=== PATIENT | female | born 1980 ===

== ENCOUNTER 2016-10-01 13:12 | Emergency (ER) | payer OTHER ==
[2016-10-01 13:13] VITALS: BMI 29.2
[2016-10-01 13:55] VITALS: BP 126/75; PULSE 75; TEMP 98; O2SAT 99
[2016-10-01] MEDS ORDERED: Tobramycin/Dexamethasone (Tobradex) Opth Sol (2.5 ml) OU STA (14:50)
--- NOTE | 2016-10-01 14:53 | ED PDOC ---
Arrival/HPI - General Chief Complaint: Cough, Cold, Congestion Time Seen by Provider: 10/01/16 14:28 Historian: Patient - History of Present Illness Narrative History of Present Illness (Text): 10/01/16 14:28 This 36 yo female presents to this ED c/o watery, itching, eyes redness x 1 week. Patient stated she has had similar symptoms in the past. Patient also c/ o nasal congestion. Patient denies eye discharge. Denies fever, sick contact, recent travel, christine, sob, cp, rash, sore throat, or dizziness. Time/Duration: 1 week Context: Home Past Medical History - Provider Review Nursing Documentation Reviewed: Yes - Infectious Disease Hx of Infectious Diseases: None - Tetanus Immunization Tetanus Immunization: Unknown - Past Medical History Past Medical History: No Previous - Cardiac Hx Cardiac Disorders: No - Pulmonary Hx Asthma: Yes - Neurological Hx Neurological Disorder: No - HEENT Hx HEENT Disorder: No - Renal Hx Renal Disorder: No - Endocrine/Metabolic Hx Endocrine Disorders: No - Hematological/Oncological Hx Anemia: Yes - Integumentary Hx Dermatological Disorder: No - Musculoskeletal/Rheumatological Hx Musculoskeletal Disorders: No Hx Falls: No - Gastrointestinal Hx Gastrointestinal Disorders: No - Genitourinary/Gynecological Hx Genitourinary Disorders: No - Psychiatric Hx Psychophysiologic Disorder: No Hx Anxiety: No Hx Bipolar Disorder: No Hx Depression: No Hx Emotional Abuse: No Hx Hallucinations: No Hx Panic Disorder: No Hx Post Traumatic Stress Disorder: No Hx Psychosis: No Hx Physical Abuse: No Hx Schizophrenia: No Hx Sexual Abuse: No Hx Substance Use: No - Past Surgical History Past Surgical History: No Previous - Surgical History Other/Comment: Cyst removed left wrist - Anesthesia Hx Anesthesia: No Hx Anesthesia Reactions: No Hx Malignant Hyperthermia: No - Suicidal Assessment Feels Threatened In Home Enviroment: No Family/Social History - Physician Review Nursing Documentation Reviewed: Yes Family/Social History: No Known Family HX Smoking Status: Former Smoker Hx Alcohol Use: No Hx Substance Use: No Hx Substance Use Treatment: No Allergies/Home Meds Allergies/Adverse Reactions: Allergies No Known Allergies Allergy (Verified 10/01/16 13:55) Review of Systems - Review of Systems Constitutional: Normal. absent: Fatigue, Weight Change Eyes: Other (Eye itchy and redness) ENT: Rhinorrhea. absent: Sore Throat Respiratory: Normal Cardiovascular: Normal. absent: Chest Pain, Palpitations Gastrointestinal: Normal. absent: Abdominal Pain, Nausea, Vomiting Genitourinary Female: Normal Musculoskeletal: Normal Skin: Normal. absent: Rash Neurological: Normal. absent: Headache, Dizziness, Focal Weakness, Gait Changes , Speech Changes, Facial Droop, Disequilibrium, Seizure Endocrine: Normal Hemo/Lymphatic: Normal Psychiatric: Normal Physical Exam Vital Signs Temp Pulse Resp BP Pulse Ox 10/01/16 15:35 16 99 10/01/16 15:19 75 16 99 10/01/16 13:50 98 F 75 20 126/75 99 Temperature: Afebrile Blood Pressure: Normal Pulse: Regular Respiratory Rate: Normal Appearance: Positive for: Well-Appearing, Non-Toxic, Comfortable Pain Distress: None Mental Status: Positive for: Alert and Oriented X 3 - Systems Exam Head: Present: Atraumatic, Normocephalic. No: Tenderness Pupils: Present: PERRL Extroacular Muscles: Present: EOMI. No: Entrapment Conjunctiva: Present: Injected (mild b/l) Ears: Present: Normal, NORMAL TM, Normal Canal. No: Erythema, TM Bulging Mouth: Present: Moist Mucous Membranes, Normal Lips, Normal Tounge. No: Drooling Pharnyx: Present: Normal. No: ERYTHEMA, EXUDATE, TONSILS ENLARGED Nose (External): Present: Atraumatic Nose (Internal): Present: Rhinorrhea. No: Engorged, Edematous, Purulent Mucous Neck: Present: Normal Range of Motion Respiratory/Chest: Present: Clear to Auscultation, Good Air Exchange. No: Respiratory Distress, Accessory Muscle Use Cardiovascular: Present: Regular Rate and Rhythm, Normal S1, S2. No: Murmurs Abdomen: Present: Normal Bowel Sounds. No: Tenderness, Distention, Peritoneal Signs Back: Present: Normal Inspection Upper Extremity: Present: Normal Inspection. No: Cyanosis, Edema Lower Extremity: Present: Normal Inspection. No: Edema Neurological: Present: GCS=15, CN II-XII Intact, Speech Normal Skin: Present: Warm, Dry, Normal Color. No: Rashes Psychiatric: Present: Alert, Oriented x 3, Normal Insight, Normal Concentration Medical Decision Making ED Course and Treatment: 10/01/16 14:51 Patient came c/o b/l eye itching. She stated oral antihistamine is not helping. Patient is requesting Tobradex ophthalmic for symptoms which it has worked in the past. Patient understands risk of using steroid medication, which it could cause not only by including cataracts. She still wants this medication. Re-evaluation Time: 14:53 Reassessment Condition: Re-examined, Improved - Medication Orders Current Medication Orders: Discontinued Medications Tobramycin/Dexamethasone (Tobradex Opht Susp) 1 ml OU STAT STA Stop: 10/01/16 14:51 Last Admin: 10/01/16 15:30 Dose: 1 ml Disposition/Present on Arrival - Present on Arrival Any Indicators Present on Arrival: No History of DVT/PE: No History of Uncontrolled Diabetes: No Urinary Catheter: No History of Decub. Ulcer: No History Surgical Site Infection Following: None - Disposition Have Diagnosis and Disposition been Completed?: Yes Diagnosis: Conjunctivitis, Nasal congestion Disposition: HOME/ ROUTINE Disposition Time: 15:16 Patient Plan: Discharge Condition: GOOD Discharge Instructions (ExitCare): Conjunctivitis (ED) Additional Instructions: Call private doctor for follow up visit ion 1-2 days. Take medication as instructed. Return to emergency if symptoms worsen. Eye drop to be use 3 times a day for max. 7 days Prescriptions: Promethazine DM [Dextromethorphan/Promethazine 15 MG/5 Ml-6.25] 5 ml PO Q4H PRN #180 ml PRN Reason: Cough Referrals: PCP,NO [Primary Care Provider] - Follow up with primary [facility] [Outside] - Follow up with primary [facility] [place] [Outside] - Follow up with primary Forms: WORK NOTE
[2016-10-01 15:19] VITALS: RESP 16
== END 2016-10-01 15:35 | disposition home or self-care (01) ==
LOC: ED 13:12
DX: H10.9 Unspecified conjunctivitis (principal); R09.81 Nasal congestion

== ENCOUNTER 2016-12-26 01:16 | Emergency (ER) | payer OTHER ==
[2016-12-26 01:17] VITALS: BMI 29.2
== END 2016-12-26 03:05 | disposition left against medical advice (07) ==
LOC: ED 01:16
DX: Z02.89 Encounter for other administrative examinations (principal); R51 Headache

== ENCOUNTER 2017-03-07 00:24 | Emergency (ER) | payer SELFPAY ==
[2017-03-07 00:24] VITALS: BMI 29.2
[2017-03-07] MEDS ORDERED: Albuterol-Ipratrop 3 mg / 0.5 (3 ml) UD ONE (00:42)
[2017-03-07 00:47] VITALS: BP 103/61; PULSE 100; RESP 18; TEMP 98.5; O2SAT 100
[2017-03-07] MEDS ORDERED: Albuterol-Ipratrop 3 mg / 0.5 (3 ml) UD IH STA (00:48)
--- NOTE | 2017-03-07 00:57 | ED PDOC ---
Arrival/HPI - General Time Seen by Provider: 03/07/17 00:41 Historian: Patient - History of Present Illness Narrative History of Present Illness (Text): 03/07/17 00:56 A 36 year old female, whose past medical history includes asthma, presents to the emergency department complaining of shortness of breath. Patient reports she is on Albuterol at home. Reports pain when taking deep breaths. Notes a nonproductive cough but denies any fever, chills, headache or any other complaints at this time. Symptom Onset: Sudden Symptom Course: Unchanged Activities at Onset: Rest Context: Home Past Medical History - Provider Review Nursing Documentation Reviewed: Yes - Infectious Disease Hx of Infectious Diseases: None - Tetanus Immunization Tetanus Immunization: Unknown - Past Medical History Past Medical History: No Previous - Cardiac Hx Cardiac Disorders: No - Pulmonary Hx Asthma: Yes - Neurological Hx Neurological Disorder: No - HEENT Hx HEENT Disorder: No - Renal Hx Renal Disorder: No - Endocrine/Metabolic Hx Endocrine Disorders: No - Hematological/Oncological Hx Anemia: Yes - Integumentary Hx Dermatological Disorder: No - Musculoskeletal/Rheumatological Hx Musculoskeletal Disorders: No Hx Falls: No - Gastrointestinal Hx Gastrointestinal Disorders: No - Genitourinary/Gynecological Hx Genitourinary Disorders: No - Psychiatric Hx Psychophysiologic Disorder: No Hx Anxiety: No Hx Bipolar Disorder: No Hx Depression: No Hx Emotional Abuse: No Hx Hallucinations: No Hx Panic Disorder: No Hx Post Traumatic Stress Disorder: No Hx Psychosis: No Hx Physical Abuse: No Hx Schizophrenia: No Hx Sexual Abuse: No Hx Substance Use: No - Past Surgical History Past Surgical History: No Previous - Surgical History Other/Comment: Cyst removed left wrist - Anesthesia Hx Anesthesia: No Hx Anesthesia Reactions: No Hx Malignant Hyperthermia: No - Suicidal Assessment Feels Threatened In Home Enviroment: No Family/Social History - Physician Review Nursing Documentation Reviewed: Yes Family/Social History: No Known Family HX Smoking Status: Light Smoker < 10 Cigarettes Daily Hx Alcohol Use: No Hx Substance Use: No Hx Substance Use Treatment: No Allergies/Home Meds Allergies/Adverse Reactions: Allergies No Known Allergies Allergy (Verified 03/07/17 00:43) Review of Systems - Physician Review All systems were reviewed & negative as marked: Yes - Review of Systems Constitutional: absent: Fevers, Other (chills) Respiratory: SOB, Cough Neurological: absent: Headache Physical Exam Vital Signs Reviewed: Yes Vital Signs Temp Pulse Resp BP Pulse Ox 03/07/17 00:43 98.5 F 100 H 18 103/61 100 Temperature: Afebrile Blood Pressure: Normal Pulse: Regular Respiratory Rate: Normal Appearance: Positive for: Well-Appearing, Non-Toxic, Comfortable Pain Distress: None Mental Status: Positive for: Alert and Oriented X 3 - Systems Exam Head: Present: Atraumatic, Normocephalic Pupils: Present: PERRL Extroacular Muscles: Present: EOMI Conjunctiva: Present: Normal Mouth: Present: Moist Mucous Membranes Neck: Present: Normal Range of Motion Respiratory/Chest: Present: Other (expiratory wheezing). No: Respiratory Distress, Accessory Muscle Use Cardiovascular: Present: Regular Rate and Rhythm, Normal S1, S2. No: Murmurs Abdomen: Present: Normal Bowel Sounds. No: Tenderness, Distention, Peritoneal Signs Back: Present: Normal Inspection Upper Extremity: Present: Normal Inspection. No: Cyanosis, Edema Lower Extremity: Present: Normal Inspection. No: Edema Neurological: Present: GCS=15, CN II-XII Intact, Speech Normal Skin: Present: Warm, Dry, Normal Color. No: Rashes Psychiatric: Present: Alert, Oriented x 3, Normal Insight, Normal Concentration Medical Decision Making ED Course and Treatment: 03/07/17 00:55 Impression: A 36 year old female with shortness of breath. Plan: -- chest xray -- Duoneb -- Reassess and disposition Prior Visits: Notes and results from previous visits were reviewed. Patient was seen in the emergency department on 10/01/16 for evaluation of watery, itching and eyes redness. Progress Notes: 03/07/17 02:47 Chest xray: No acute process, interpreted by me. 03/07/17 02:48 On re-evaluation, patient feels better and is in no acute distress. I have discussed the results and plan with the patient, who expresses understanding. Patient in agreement with plan to be discharged home. Patient is stable for discharge. Patient was instructed to follow up with physician or return if symptoms worsen or new concerning symptoms arise. - RAD Interpretation Radiology Orders: 03/07/17 00:47 CHEST PORTABLE [RAD] Stat - Medication Orders Current Medication Orders: Discontinued Medications Albuterol/Ipratropium (Duoneb 3 Mg/0.5 Mg (3 Ml) Ud) 3 ml IH ONCE STA Stop: 10/04/17 00:49 Last Admin: 03/07/17 01:42 Dose: 3 ml - Scribe Statement The provider has reviewed the documentation as recorded by the Onel Waters Provider Giselaibe Attestation: All medical record entries made by the Giselaibnader were at my direction and personally dictated by me. I have reviewed the chart and agree that the record accurately reflects my personal performance of the history, physical exam, medical decision making, and the department course for this patient. I have also personally directed, reviewed, and agree with the discharge instructions and disposition. Disposition/Present on Arrival - Present on Arrival Any Indicators Present on Arrival: No History of DVT/PE: No History of Uncontrolled Diabetes: No Urinary Catheter: No History of Decub. Ulcer: No History Surgical Site Infection Following: None - Disposition Have Diagnosis and Disposition been Completed?: Yes Diagnosis: Asthma, Bronchitis Disposition: HOME/ ROUTINE Disposition Time: 02:50 Patient Plan: Discharge Condition: GOOD Discharge Instructions (ExitCare): Asthma (ED), Acute Bronchitis (ED) Additional Instructions: No smoking/medication as prescribed/follow up with your doctor this week Prescriptions: Ibuprofen [Motrin] 600 mg PO Q6 PRN #16 tab PRN Reason: Pain, Moderate (4-7) predniSONE [Prednisone] 40 mg PO DAILY #10 tab Albuterol HFA [Ventolin HFA 90 mcg/actuation (8 g)] 2 puff IH [id number] PRN #1 puff PRN Reason: Wheezing Azithromycin [Zithromax] 250 mg PO DAILY #4 tab
--- NOTE | 2017-03-07 13:02 | RAD ---
HISTORY: cough COMPARISON: All 03/15/2016 FINDINGS: LUNGS: No consolidation. The right infrahilar bronchovascular marking are mildly prominent -right infrahilar peribronchial thickening bronchitis can simulate this. Findings are not appreciated on prior exam PLEURA: No significant pleural effusion identified, no pneumothorax apparent. CARDIOVASCULAR: Normal heart size OSSEOUS STRUCTURES: No significant abnormalities. VISUALIZED UPPER ABDOMEN: Normal. OTHER FINDINGS: None. IMPRESSION: No consolidative infiltrate. Possible right infrahilar bronchitis
== END 2017-03-07 03:46 | disposition home or self-care (01) ==
LOC: ED 00:24
DX: J45.909 Unspecified asthma, uncomplicated (principal)

== ENCOUNTER 2017-06-02 16:14 | Emergency (ER) | payer OTHER ==
[2017-06-02 16:14] VITALS: BMI 29.2
[2017-06-02 16:22] VITALS: TEMP 97.7
[2017-06-02] MEDS ORDERED: Albuterol-Ipratrop 3 mg / 0.5 (3 ml) UD IH STA (16:54)
[2017-06-02 17:08] LABS: URINE BILIRUBIN NEGATIVE (NEGATIVE); URINE BLOOD NEGATIVE (NEGATIVE); URINE GLUCOSE (UA) NEGATIVE (NEGATIVE); URINE LEUKOCYTE ESTERASE NEGATIVE Leu/uL (NEGATIVE); URINE NITRATE NEGATIVE (NEGATIVE); URINE PROTEIN NEGATIVE mg/dL (<30 mg/dL); URINE UROBILINOGEN 0.2 E.U./dL (<1 E.U./dL)
[2017-06-02 17:10] LABS: URINE APPEARANCE CLEAR (CLEAR); URINE COLOR YELLOW (YELLOW)
--- NOTE | 2017-06-02 17:48 | ED PDOC ---
Arrival/HPI - General Chief Complaint: Cough, Cold, Congestion Time Seen by Provider: 06/02/17 16:33 Historian: Patient - History of Present Illness Narrative History of Present Illness (Text): 06/02/17 17:44 36 yo F who is 3.5 months , w/ PMH of asthma reports 1 week h/o cough, congestion and SOB due to asthma, has been taking her inhaler and nebulizer with mild relief. Patient also reports of mild low back pain when she coughs. Otherwise: (-) fever, (-) sore throat, (-) N/V/D, (-) abdominal pain, (-) vaginal bleeding, (-) urinary symptoms, (-) recent travel, (-) sick contacts. Patient states that she is receiving care and has had a prior US to confirm her . Past Medical History - Provider Review Nursing Documentation Reviewed: Yes - Infectious Disease Hx of Infectious Diseases: None - Tetanus Immunization Tetanus Immunization: Unknown - Past Medical History Past Medical History: No Previous - Cardiac Hx Cardiac Disorders: No - Pulmonary Hx Respiratory Disorders: Yes Hx Asthma: Yes - Neurological Hx Neurological Disorder: No - HEENT Hx HEENT Disorder: No - Renal Hx Renal Disorder: No - Endocrine/Metabolic Hx Endocrine Disorders: No - Hematological/Oncological Hx Anemia: Yes - Integumentary Hx Dermatological Disorder: No - Musculoskeletal/Rheumatological Hx Musculoskeletal Disorders: No Hx Falls: No - Gastrointestinal Hx Gastrointestinal Disorders: No - Genitourinary/Gynecological Hx Genitourinary Disorders: No - Psychiatric Hx Psychophysiologic Disorder: No Hx Anxiety: No Hx Bipolar Disorder: No Hx Depression: No Hx Emotional Abuse: No Hx Hallucinations: No Hx Panic Disorder: No Hx Post Traumatic Stress Disorder: No Hx Psychosis: No Hx Physical Abuse: No Hx Schizophrenia: No Hx Sexual Abuse: No Hx Substance Use: No - Past Surgical History Past Surgical History: No Previous - Surgical History Other/Comment: Cyst removed left wrist - Anesthesia Hx Anesthesia: Yes Hx Anesthesia Reactions: No Hx Malignant Hyperthermia: No - Suicidal Assessment Feels Threatened In Home Enviroment: No Family/Social History - Physician Review Nursing Documentation Reviewed: Yes Family/Social History: Unknown Family HX Smoking Status: Never Smoked Hx Alcohol Use: No Hx Substance Use: No Hx Substance Use Treatment: No Allergies/Home Meds Allergies/Adverse Reactions: Allergies No Known Allergies Allergy (Verified 06/02/17 16:17) Home Medications: Home Meds Medication Instructions Recorded Confirmed DiphenhydrAMINE [Benadryl] 25 mg PO PRN PRN 06/02/17 06/02/17 Review of Systems - Review of Systems Constitutional: absent: Fatigue, Weight Change, Fevers ENT: Rhinorrhea, Sinus Congestion. absent: Sore Throat Respiratory: SOB, Cough Cardiovascular: absent: Chest Pain, Palpitations, Edema Gastrointestinal: absent: Abdominal Pain, Diarrhea, Vomiting Genitourinary Female: absent: Dysuria, Frequency, Hematuria Musculoskeletal: Back Pain. absent: Arthralgias, Neck Pain Skin: absent: Rash, Pruritis, Skin Lesions Physical Exam - Physical Exam Narrative Physical Exam (Text): 06/02/17 17:48 GENERAL APPEARANCE: Patient is awake, alert, oriented x 3, in no acute distress. Speaking in full sentences, no respiratory distress. SKIN: Warm, dry; (-) cyanosis, (-) rash. (-) Decubitus Ulcer EYES: (-) conjunctival pallor, (-) scleral icterus, (-) conjunctival hemorrhage. ENMT: Mucous membranes moist. TMs: (-) erythema. Airway patent: (-) stridor. Pharynx: (-) erythema, (-) exudate. NECK: (-) tenderness, (-) stiffness, (-) meningismus, (-) lymphadenopathy. CHEST AND RESPIRATORY: (-) accessory muscle use. Lungs: (-) rales, (-) rhonchi, (-) wheezes, (-) rub; breath sounds equal bilaterally. HEART AND CARDIOVASCULAR: (-) irregularity; (-) murmur, (-) gallop, (-) rub. BACK : (-) tenderness. ABDOMEN AND GI: Soft; (-) tenderness, (-) guarding; (-) organomegaly; (-) mass ; (-) CVA tenderness. EXTREMITIES: (-) deformity; (-) cellulitis, (-) lymphangitis; (-) subungual hemorrhage; (-) edema. NEURO AND PSYCH: Mental status as above; (-) focal findings. Vital Signs Temp Pulse Resp BP Pulse Ox 06/02/17 16:20 97.7 F 86 18 94/66 L 95 Medical Decision Making ED Course and Treatment: 06/02/17 17:49 36 yo F who is 3.5 months , w/ PMH of asthma reports 1 week h/o cough, congestion and SOB due to asthma, has been taking her inhaler and nebulizer with mild relief. Plan : - UA - Urine cx - Duoneb x1 - Prednisone 60 mg PO UA (-), urine cx is pending. On re-evaluation, patient reports she fels much improved, denies any SOB, CP, abdominal pain or vaginal bleeding. On exam, patient is speaking in full sentences, no respiratory distress, lungs are clear to auscultation, BS are equal b/l. Dx of viral illness, and asthma d/w the patient. Instructed to follow up with primary care physician in 1-2 days without fail. Advised to take medication as prescribed. Return to the emergency room at any time for any new or worsening symptoms. Patient states she fully agrees with and understands discharge instructions. States that she agrees with the plan and disposition. Verbalized and repeated discharge instructions and plan. I have given the patient opportunity to ask any additional questions. - Lab Interpretations Lab Results: Lab Results 06/02/17 16:30: Urine Color Yellow, Urine Appearance Clear, Urine pH 6.0, Ur Specific [place] 1.020, Urine Protein Negative, Urine Glucose (UA) Negative, Urine Ketones Negative, Urine Blood Negative, Urine Nitrate Negative, Urine Bilirubin Negative, Urine Urobilinogen 0.2, Ur Leukocyte Esterase Negative - Medication Orders Current Medication Orders: Discontinued Medications Albuterol/Ipratropium (Duoneb 3 Mg/0.5 Mg (3 Ml) Ud) 3 ml IH STAT STA Stop: 06/02/17 16:55 Last Admin: 06/02/17 17:05 Dose: 3 ml Prednisone (Prednisone Tab) 60 mg PO STAT STA Stop: 06/02/17 16:55 Last Admin: 06/02/17 17:05 Dose: 60 mg - PA / CLINICAL ASSISTANT PROFESSOR / Resident Statement MD/DO has reviewed & agrees with the documentation as recorded. Disposition/Present on Arrival - Present on Arrival Any Indicators Present on Arrival: No History of DVT/PE: No History of Uncontrolled Diabetes: No Urinary Catheter: No History of Decub. Ulcer: No History Surgical Site Infection Following: None - Disposition Have Diagnosis and Disposition been Completed?: Yes Diagnosis: Cough, Viral illness Disposition: HOME/ ROUTINE Disposition Time: 17:50 Patient Plan: Discharge Patient Problems: Current Active Problems Problem Status Onset Cough Acute Viral illness Acute Condition: STABLE Discharge Instructions (ExitCare): Asthma (DC), Viral Syndrome (ED) Print Language: SINHAL[place] Additional Instructions: Thank you for letting us take care of you today. You were treated for cough, viral illness, asthma. The emergency medical care you received today was directed at your acute symptoms. If you were prescribed any medication, please fill it and take as directed. It may take several days for your symptoms to resolve. Return to the Emergency Department if your symptoms worsen, do not improve, or if you have any other problems. Please contact your doctor in 2 days for re-evaluation and follow up. Bring any paperwork you were given at discharge with you along with any medications you are taking to your follow up visit. Our treatment cannot replace ongoing medical care by a primary care provider (PCP) outside of the emergency department. Thank you for allowing the [facility] team to be part of your care today. Prescriptions: predniSONE [predniSONE Tab] 40 mg PO DAILY #8 tab Forms: [place] (Green[place]ic), WORK NOTE
[2017-06-02 18:40] VITALS: BP 112/87; PULSE 82; RESP 16; O2SAT 100
== END 2017-06-02 18:37 | disposition home or self-care (01) ==
LOC: ED 16:14
DX: B34.9 Viral infection, unspecified (principal); R05 Cough; J45.909 Unspecified asthma, uncomplicated

== ENCOUNTER 2017-09-29 18:44 | Emergency (ER) | payer OTHER ==
[2017-09-29 18:45] VITALS: BMI 29.2
--- NOTE | 2017-09-29 19:37 | ED PDOC ---
Arrival/HPI - General Chief Complaint: Female Genitourinary Time Seen by Provider: 09/29/17 19:34 Historian: Patient - History of Present Illness Narrative History of Present Illness (Text): 09/29/17 19:34 pt p/w + pelvic region cramping/with pain radiating from her back to her groin b /l x 1 week; pt states back pain is worse towards her right side/glutteal region ; pt states walking excessively/lifting/moving causes more pain; pt states at most pain is 8-9/10; pt states [place] pelvic cramping also is more noticeable; pt states no fever/chills/sweats, no cp/sob/palpitations, no upper abd pain, no n/v , no numbness/tingling, no urinary/bowel changes, no incontinence, no vaginal bleeding, no urinary frequency, pt denied fall/trauma/sick contact, no travel accommodation inspector states her prior pregnancies she did not have this problem pt also states she has not had an outpt [facility] pt has had care pt is here for further eval pt's without other complaints. pt is currently 8 months preg [employer] PROF[employer]AL: DR GALVAN LMP: feb 2017 due date: 11/28/2017 PMHx: asthma Time/Duration: 1 week Symptom Onset: Gradual Symptom Course: Unchanged Quality: Tightness, Stabbing, Cramping Severity Level: 8 Activities at Onset: Other (worse pain with movement) Context: Walking, Exertion, Home Past Medical History - Provider Review Nursing Documentation Reviewed: Yes - Travel History Have you recently traveled outside [place] w/in the past 3 mons?: No - Past History Past History: No Previous - Infectious Disease Hx of Infectious Diseases: None - Tetanus Immunization Tetanus Immunization: Unknown - Reproductive Menopause: No Currently : Yes - Past Medical History Past Medical History: No Previous - Cardiac Hx Cardiac Disorders: No - Pulmonary Hx Respiratory Disorders: Yes Hx Asthma: Yes - Neurological Hx Neurological Disorder: No - HEENT Hx HEENT Disorder: No - Renal Hx Renal Disorder: No - Endocrine/Metabolic Hx Endocrine Disorders: No - Hematological/Oncological Hx Anemia: Yes - Integumentary Hx Dermatological Disorder: No - Musculoskeletal/Rheumatological Hx Musculoskeletal Disorders: No Hx Falls: No - Gastrointestinal Hx Gastrointestinal Disorders: No - Genitourinary/Gynecological Hx Genitourinary Disorders: No - Psychiatric Hx Psychophysiologic Disorder: No Hx Anxiety: No Hx Bipolar Disorder: No Hx Depression: No Hx Emotional Abuse: No Hx Hallucinations: No Hx Panic Disorder: No Hx Post Traumatic Stress Disorder: No Hx Psychosis: No Hx Physical Abuse: No Hx Schizophrenia: No Hx Sexual Abuse: No Hx Substance Use: No - Past Surgical History Past Surgical History: No Previous - Surgical History Other/Comment: Cyst removed left wrist - Anesthesia Hx Anesthesia: Yes Hx Anesthesia Reactions: No Hx Malignant Hyperthermia: No - Suicidal Assessment Feels Threatened In Home Enviroment: No Family/Social History - Physician Review Nursing Documentation Reviewed: Yes Family/Social History: No Known Family HX Smoking Status: Never Smoked Hx Alcohol Use: No Hx Substance Use: No Hx Substance Use Treatment: No Allergies/Home Meds Allergies/Adverse Reactions: Allergies No Known Allergies Allergy (Verified 09/29/17 19:03) Review of Systems - Review of Systems Constitutional: Normal Eyes: Normal ENT: Normal Respiratory: Normal Cardiovascular: Normal Gastrointestinal: Abdominal Pain, Other (pelvic cramps/pain). absent: Nausea, Vomiting Genitourinary Female: Normal. absent: Dysuria, Frequency, Hematuria, Vaginal Bleeding, Vaginal Discharge Musculoskeletal: Back Pain. absent: Arthralgias, Neck Pain Skin: Normal Neurological: Normal Endocrine: Normal Hemo/Lymphatic: Normal Psychiatric: Normal Physical Exam Vital Signs Reviewed: Yes Vital Signs Temp Pulse Resp BP Pulse Ox 09/29/17 19:30 98.2 F 89 17 109/68 98 Temperature: Afebrile Blood Pressure: Normal Pulse: Regular Respiratory Rate: Normal Appearance: Positive for: Well-Appearing, Non-Toxic, Uncomfortable, Other (alert /awake, GCS = 15, oriented x 3, sitting on exam bed, mildly uncomfortable, NAD, cooperative, follows command with ease) Pain Distress: None Mental Status: Positive for: Alert and Oriented X 3 - Systems Exam Head: Present: Atraumatic, Normocephalic Pupils: Present: PERRL, Other (no nystagmus, no photophobia, sclera anicteric) Extroacular Muscles: Present: EOMI Conjunctiva: Present: Normal Ears: Present: Normal Mouth: Present: Moist Mucous Membranes, Normal Teeth, Other (uvula/tongue are midline, no exudate/lesions). No: Drooling Pharnyx: Present: Normal Nose (External): Present: Atraumatic Nose (Internal): Present: Normal Inspection Neck: Present: Normal Range of Motion, Trachea Midline, Other (intact ROM, no midline tenderness, no step off). No: Meningeal Signs, MIDLINE TENDERNESS, Paraspinal Tenderness Respiratory/Chest: Present: Clear to Auscultation, Good Air Exchange, Other ( CTA b/l, no w/r/r). No: Respiratory Distress, Accessory Muscle Use Cardiovascular: Present: Regular Rate and Rhythm, Normal S1, S2. No: Murmurs Abdomen: Present: Normal Bowel Sounds, Other (gravid abd, appropriate gestation , no focal abd tenderness, no mcmillan's sign, no mcburney's point tenderness, no masses/rebound/guarding/rigidity) Back: Present: Normal Inspection. No: CVA Tenderness, Midline Tenderness, Paraspinal Tenderness Upper Extremity: Present: Normal Inspection, Normal ROM, NORMAL PULSES Lower Extremity: Present: Normal Inspection, NORMAL PULSES, Normal ROM, Neurovascularly Intact, Other (+ pt is ambulatory without any difficulties, neurovasc intact b/l, strength 5/5 grossly intact b/l) Neurological: Present: GCS=15, CN II-XII Intact, Speech Normal Skin: Present: Warm, Normal Color, Other (cap refill < 1sec, no ulcerations, no petechiae, no rashes) Psychiatric: Present: Alert, Oriented x 3 Medical Decision Making ED Course and Treatment: 09/29/171933 Impression: pelvic cramps, lower back pain x 1 week i have consider all the differential diagnosis regarding pt's chief medical complaints/clinical findings, including but are not limited to: pelvic cramps, lower back pain x 1 week A/P: pelvic cramps, lower back pain x 1 week, 8 months preg - ua - us - likely transfer to L&D outside of [facility] - supportive care - observe/reevaluation 1944 pt is made aware that [facility] does not have an L&D specialty coverage, pt is made aware that she will be subsequently transferred to either [facility], or [facility], or the hospital where upon she will likely be delivering; pt states after much thought that she wants to leave AMA and she will go there on her own tonight with her significant other at around 8pm pt is aware that by leaving against medical advice, potential life-threatening illness remains and pt can lose limb/her baby, and/or worse case, she can Pt is directed to see her doctor immediately pt expressed understanding pt is made aware that if she changes her mind, she is encouraged to return to ED immediately for further care/management Re-evaluation Time: 19:45 Reassessment Condition: Unchanged Disposition/Present on Arrival - Present on Arrival Any Indicators Present on Arrival: No History of DVT/PE: No History of Uncontrolled Diabetes: No Urinary Catheter: No History of Decub. Ulcer: No History Surgical Site Infection Following: None - Disposition Have Diagnosis and Disposition been Completed?: Yes Diagnosis: Pelvic cramping, Third trimester , Back pain Disposition: AGAINST MEDICAL ADVICE Disposition Time: 19:35 Condition: STABLE Discharge Instructions (ExitCare): Care, Acute Pelvic Pain, - The Eighth Month, Round Ligament Pain Print Language: ALBANIAN Additional Instructions: you are leaving against medical advice potential life-threatening illness remains and pt can lose limb/or worse case, lose your baby, or you can possibly you are to see your doctor as soon as possible if you change your mind, you are encouraged to return to ED immediately for further care/management Referrals: Lorenzo Galvan MD [Primary Care Provider] - Follow up with primary Forms: [facility] (Belgian)
[2017-09-29 19:56] VITALS: BP 109/68; PULSE 89; RESP 17; TEMP 98.2; O2SAT 98
== END 2017-09-29 19:53 | disposition left against medical advice (07) ==
LOC: ED 18:44
DX: O26.893 Other specified pregnancy related conditions, third trimester (principal); Z3A.32 32 weeks gestation of pregnancy; R10.2 Pelvic and perineal pain; M54.5 Low back pain

== ENCOUNTER 2018-06-07 21:38 | Emergency (ER) | payer OTHER ==
[2018-06-07 21:38] VITALS: BMI 29.2
[2018-06-07] MEDS ORDERED: Albuterol-Ipratrop 3 mg / 0.5 (3 ml) UD IH STA ×4 (22:03→23:41)
--- NOTE | 2018-06-07 22:03 | ED PDOC ---
Arrival/HPI - General Chief Complaint: Shortness Of Breath Time Seen by Provider: 06/07/18 21:43 Historian: Patient - History of Present Illness Narrative History of Present Illness (Text): 06/07/18 22:03 37 year old female, whose past medical history includes asthma, who presents to the emergency department complaining of shortness of breath for the past two days. Patient reports taking albuterol without any significant improvement. Patient reports associated nonproductive cough and wheezing. Patient reports symptoms are consistent with usual asthma symptoms. Patient denies any urinary symptoms, fevers, chills, headache, dizziness, chest pain, abdominal pain, nausea, vomiting, diarrhea, back pain, neck pain, or any other complaints. Time/Duration: < week (2 days ) Symptom Onset: Gradual Symptom Course: Unchanged Activities at Onset: Light Context: Home Past Medical History - Provider Review Nursing Documentation Reviewed: Yes - Past History Past History: No Previous - Infectious Disease Hx of Infectious Diseases: None - Tetanus Immunization Tetanus Immunization: Unknown - Past Medical History Past Medical History: No Previous - Cardiac Hx Cardiac Disorders: No - Pulmonary Hx Respiratory Disorders: Yes Hx Asthma: Yes - Neurological Hx Neurological Disorder: No - HEENT Hx HEENT Disorder: No - Renal Hx Renal Disorder: No - Endocrine/Metabolic Hx Endocrine Disorders: No - Hematological/Oncological Hx Blood Disorders: Yes Hx Anemia: Yes - Integumentary Hx Dermatological Disorder: No - Musculoskeletal/Rheumatological Hx Musculoskeletal Disorders: No Hx Falls: No - Gastrointestinal Hx Gastrointestinal Disorders: No - Genitourinary/Gynecological Hx Genitourinary Disorders: No - Psychiatric Hx Psychophysiologic Disorder: No Hx Anxiety: No Hx Bipolar Disorder: No Hx Depression: No Hx Emotional Abuse: No Hx Hallucinations: No Hx Panic Disorder: No Hx Post Traumatic Stress Disorder: No Hx Psychosis: No Hx Physical Abuse: No Hx Schizophrenia: No Hx Sexual Abuse: No Hx Substance Use: No - Past Surgical History Past Surgical History: No Previous - Surgical History Hx Section: Yes (x1) Other/Comment: Cyst removed left wrist - Anesthesia Hx Anesthesia: Yes Hx Anesthesia Reactions: No Hx Malignant Hyperthermia: No - Suicidal Assessment Feels Threatened In Home Enviroment: No Family/Social History - Physician Review Nursing Documentation Reviewed: Yes Family/Social History: Unknown Family HX Smoking Status: Never Smoked Hx Alcohol Use: No Hx Substance Use: No Hx Substance Use Treatment: No Allergies/Home Meds Allergies/Adverse Reactions: Allergies No Known Allergies Allergy (Verified 06/07/18 21:40) Review of Systems - Physician Review All systems were reviewed & negative as marked: Yes - Review of Systems Constitutional: absent: Fevers Respiratory: SOB, Cough, Wheezing Cardiovascular: absent: Chest Pain Gastrointestinal: absent: Abdominal Pain, Diarrhea, Nausea Genitourinary Female: absent: Frequency, Hematuria, Urine Output Changes Musculoskeletal: absent: Back Pain Skin: absent: Rash Neurological: absent: Headache, Dizziness Physical Exam Vital Signs Reviewed: Yes Vital Signs Temp Pulse Resp BP Pulse Ox 06/07/18 21:40 98.8 F 110 H 19 104/63 96 Temperature: Afebrile Blood Pressure: Normal Pulse: Tachycardic Respiratory Rate: Normal Appearance: Positive for: Well-Appearing, Non-Toxic, Comfortable Pain Distress: None Mental Status: Positive for: Alert and Oriented X 3 - Systems Exam Head: Present: Atraumatic, Normocephalic Pupils: Present: PERRL Extroacular Muscles: Present: EOMI Conjunctiva: Present: Normal Mouth: Present: Moist Mucous Membranes Neck: Present: Normal Range of Motion Respiratory/Chest: Present: Wheezes (wheezing bilaterally ). No: Respiratory Distress, Accessory Muscle Use Cardiovascular: Present: Regular Rate and Rhythm, Normal S1, S2. No: Murmurs Abdomen: No: Tenderness, Distention, Peritoneal Signs Back: Present: Normal Inspection Upper Extremity: Present: Normal Inspection. No: Cyanosis, Edema Lower Extremity: Present: Normal Inspection. No: Edema Neurological: Present: GCS=15, CN II-XII Intact, Speech Normal Skin: Present: Warm, Dry, Normal Color. No: Rashes Psychiatric: Present: Alert, Oriented x 3, Normal Insight, Normal Concentration Medical Decision Making ED Course and Treatment: 06/07/18 22:12 Impression: 37 year old female presents to emergency department complaining of shortness of breath for the past two days. Plan: -- Duoneb -- Solu-Medrol -- Reassess and disposition Prior Visits: Notes and results from previous visits were reviewed. Progress Notes: - Scribe Statement The provider has reviewed the documentation as recorded by the Scribe Lei hobbs with Kathy All medical record entries made by the Scribe were at my direction and personall y dictated by me. I have reviewed the chart and agree that the record accurately reflects my personal performance of the history, physical exam, medical decision making, and the department course for this patient. I have also personally directed, reviewed, and agree with the discharge instructions and disposition. Disposition/Present on Arrival - Present on Arrival Any Indicators Present on Arrival: No History of DVT/PE: No History of Uncontrolled Diabetes: No Urinary Catheter: No History of Decub. Ulcer: No History Surgical Site Infection Following: None - Disposition Have Diagnosis and Disposition been Completed?: Yes Diagnosis: Asthma exacerbation Disposition: HOME/ ROUTINE Disposition Time: 23:48 Patient Plan: Discharge Condition: GOOD Additional Instructions: Medication as prescribed/follow up with your doctor this week Prescriptions: Albuterol 0.083% [Albuterol 0.083% Inhal Loulou (2.5 mg/3 ml) UD] 3 ml IH Q4 PRN #1 pkg PRN Reason: Wheezing predniSONE [Prednisone] 40 mg PO DAILY #10 tab Albuterol HFA [Ventolin HFA 90 mcg/actuation (8 g)] 2 puff IH [id number] PRN #1 puff PRN Reason: Wheezing Forms: [facility] (Yoruba)
[2018-06-07] MEDS ORDERED: Albuterol-Ipratrop 3 mg / 0.5 (3 ml) UD ONE (22:10)
[2018-06-07 23:55] VITALS: BP 133/62; PULSE 101; RESP 17; TEMP 98.2; O2SAT 98
== END 2018-06-07 23:54 | disposition home or self-care (01) ==
LOC: ED 21:38
DX: J45.901 Unspecified asthma with (acute) exacerbation (principal)
CPT/HCPCS: 94640; 96374; 99284; J2930